=== PATIENT | male | born 1965 | race Two or more races ===

== ENCOUNTER 2024-12-07 07:14 | Day surgery (SDC) | payer OTHER ==
[2024-12-02 11:00] VITALS: BMI 28.6
[2024-12-07] MEDS ORDERED: AFRIN NASAL MIST 15 ML BOT ONE ×2 (08:02→08:42)
[2024-12-07] MEDS ORDERED: PROPOFOL 20 ML ONE ×2 (08:42→08:44)
[2024-12-07] MEDS ORDERED: Bacitracin 1 PK ONE (08:42)
[2024-12-07] MEDS ORDERED: Lidocaine 1% w/Epinephrine 1:200K 30 ML VIAL ONE (08:43)
[2024-12-07] MEDS ORDERED: Lidocaine 1% PF 5 ML VIAL ONE (08:44)
[2024-12-07] MEDS ORDERED: Ondansetron PF 4 MG/2 ML Vial ONE (09:26)
[2024-12-07] MEDS ORDERED: SUGAMMADEX SODIUM 200 MG/2 ML VIAL ONE (09:26)
[2024-12-07] MEDS ORDERED: Oxymetazoline HCl 0.05% (15 ML) ONE (09:27)
[2024-12-07] MEDS ORDERED: HYDROcodone/Acetaminophen 5/325 mg Tablet ONE (10:39)
== END 2024-12-07 11:20 | disposition home or self-care (01) ==
LOC: CSHSDC 07:14
PROVIDERS: ATTEND Otolaryngology Plastic Surgery within the Head & Neck
PROC: 099X8ZZ Drainage of Left Sphenoid Sinus, Via Natural or Artificial Opening Endoscopic (ICD-10-PCS; principal; 2024-12-07)
PROC: 099R8ZZ Drainage of Left Maxillary Sinus, Via Natural or Artificial Opening Endoscopic (ICD-10-PCS; principal; 2024-12-07)
PROC: 099Q8ZZ Drainage of Right Maxillary Sinus, Via Natural or Artificial Opening Endoscopic (ICD-10-PCS; principal; 2024-12-07)
PROC: 09TV8ZZ Resection of Left Ethmoid Sinus, Via Natural or Artificial Opening Endoscopic (ICD-10-PCS; principal; 2024-12-07)
PROC: 095L8ZZ Destruction of Nasal Turbinate, Via Natural or Artificial Opening Endoscopic (ICD-10-PCS; principal; 2024-12-07)
PROC: 09SM0ZZ Reposition Nasal Septum, Open Approach (ICD-10-PCS; principal; 2024-12-07)
DX: J34.2 Deviated nasal septum (principal); J32.8 Other chronic sinusitis; J34.3 Hypertrophy of nasal turbinates; I10 Essential (primary) hypertension; E03.9 Hypothyroidism, unspecified; Z98.84 Bariatric surgery status; Z88.0 Allergy status to penicillin; Z79.890 Hormone replacement therapy; Z79.899 Other long term (current) drug therapy
CPT/HCPCS: 87070; 87102; 87205; 87206; J1010; J1100; J2405; J2704; J3010